=== PATIENT | female | born 1980 | race Caucasian/White ===

== ENCOUNTER 2022-01-31 17:10 | Outpatient (CLI) | payer OTHER, SELFPAY ==
[2022-01-31 21:45] LABS: Chloride* 100 mmol/L (96-114); Potassium* 4.2 mmol/L (3.6-5.1); Sodium* 137 mmol/L (135-149)
[2022-01-31 21:47] LABS: Creatinine* 0.8 mg/dL (0.5-1.5); Estimated Glomerular Filt Rate 94 ml/min
[2022-01-31 21:48] LABS: Blood Urea Nitrogen* 15 mg/dL (5-24); Calcium* 9.6 mg/dL (8.4-10.6); Carbon Dioxide* 29 mmol/L (20-32)
[2022-01-31 22:04] LABS: Glucose* 96 mg/dL (60-115)
== END 2022-01-31 17:11 | disposition home or self-care (01) ==
LOC: LKVREF 17:11
PROVIDERS: PCP Emergency Medicine; Visit Provider Emergency Medicine
DX: I10 Essential (primary) hypertension (principal)
CPT/HCPCS: 80048

== ENCOUNTER 2022-09-07 09:31 | Outpatient (CLI) | payer OTHER, SELFPAY ==
--- NOTE | 2022-09-07 09:45 | CRLHL7_ITS ---
For Patients: As a result of the Cures Act, medical imaging exams and procedure reports are released immediately into your electronic medical record. You may view this report before your referring provider. If you have questions, please contact your health care provider. DIGITAL DIAGNOSTIC BILATERAL MAMMOGRAM USING TOMOSYNTHESIS AND COMPUTER-AIDED DETECTION RIGHT BREAST ULTRASOUND CLINICAL HISTORY: RIGHT breast pain, discharge. COMPARISON: 08/03/2020. TECHNIQUE: Digital BILATERAL mammogram in four projections. Tomosynthesis and CAD utilized. Real-time ultrasound imaging of RIGHT breast with imaging documentation. BREAST COMPOSITION: There are areas of scattered fibroglandular density. FINDINGS: 3D CC/MLO BILATERAL mammogram images submitted. No suspicious masses or architectural distortion. No suspicious calcifications. No adenopathy. Targeted RIGHT breast ultrasound performed in the periareolar region. Normal subareolar ducts are noted. No intraductal nodule or suspicious mass. IMPRESSION: Normal BILATERAL 3D mammograms and normal targeted RIGHT breast ultrasound. No evidence of malignancy or papilloma. RECOMMENDATIONS: Annual BILATERAL screening mammography. Clinical follow-up. Results and recommendations discussed with the patient. BI-RADS Category 2: Benign A lay language report of this examination will be provided to the patient. Dictated by Jamal Bryant MD @ 09/07/2022 12:41:09 PM jj/Dictated by: Jamal Bryant MD @ 09/07/2022 12:41:00 PM (Electronically Signed)
--- NOTE | 2022-09-07 10:15 | CRLHL7_ITS ---
For Patients: As a result of the Cures Act, medical imaging exams and procedure reports are released immediately into your electronic medical record. You may view this report before your referring provider. If you have questions, please contact your health care provider. PLEASE SEE DIGITAL DIAGNOSTIC BILATERAL MAMMOGRAM PERFORMED SAME DAY CRL:rafael hall/Dictated by: Jamal Bryant MD @ 09/07/2022 12:41:00 PM (Electronically Signed)
== END 2022-09-07 09:32 | disposition home or self-care (01) ==
LOC: MAMMO 09:32
PROVIDERS: PCP Emergency Medicine; Visit Provider Emergency Medicine
DX: N64.52 Nipple discharge (principal); N64.4 Mastodynia
CPT/HCPCS: 76642; 77066; G0279

== ENCOUNTER 2022-12-12 11:50 | Outpatient (CLI) | payer OTHER, SELFPAY | END 2022-12-12 11:51 | disposition home or self-care (01) | PROVIDERS: PCP Emergency Medicine; Visit Provider Dermatology | DX: I10 Essential (primary) hypertension (principal); R73.01 Impaired fasting glucose; L40.50 Arthropathic psoriasis, unspecified; L40.9 Psoriasis, unspecified | CPT/HCPCS: 80053; 86480 ==

== ENCOUNTER 2023-12-28 12:54 | Outpatient (CLI) | payer OTHER, SELFPAY ==
--- OUTSIDE RECORDS SUMMARY | 2023-12-28 12:56 | XMS_ITS | Clinical Summary ---
Author Organization [employer] [facility] Address [place], [place] [address] Care Team Providers Care Power Grader Operator Name Role Phone Migue Anderson MD Primary Care Provider Allergies Active Allergy Reactions Criticality Noted Date Comments Penicillins Hives High 06/17/2015 Medications Medication Sig Dispensed Refills Start Date End Date Status vitamin-folic acid 1 mg ( VITAMIN) tablet/capsule Take 1 tablet by mouth once daily. 0 06/17/2015 Active ferrous sulfate, 65 mg elemental, (IRON, FERROUS SULFATE,) tablet Take 1 tablet by mouth once daily with a meal. 0 06/17/2015 Active calcium phosphate-vitamin D2 (CHILDREN'S CALCIUM GUMMIES) 100 mg calcium -100 unit chew Take 1 tablet by mouth once daily. 0 06/17/2015 Active omega-3 fatty acids-vitamin E (FISH OIL) 1,000 mg cap Take 1 capsule by mouth once daily. 0 06/17/2015 Active Family History Medical History Relation Name Comments Hypertension Father Hypertension Mother Relation Name Status Comments Father Alive Mother Alive Social History Tobacco Use Types Packs/Day Years Used Date Smoking Tobacco: Never Smokeless Tobacco: Never Alcohol Use Standard Drinks/Week Comments No 0 (1 standard drink = 0.6 oz pur e alcohol) Sex and Gender Information Value Date Recorded Sex Assigned at Not on file Gender Identity Not on file Sexual Orientation Not on file Obstetrics History Para Term AB IAB SAB Ectopic Multiple Livin g Live Births 6 0 0 0 3 0 3 0 0 2 Date Outcome GA Total Labor Labor/2nd/3rd Weight Sex Type Anes PTL Jasmin A1 A5 Name Clin SAB SAB SAB Last Filed Vital Signs Vital Sign Reading Time Taken Comments Blood Pressure 100/70 06/17/2015 1:19 PM BLOWER AND COMPRESSOR ASSEMBLER Pulse 78 06/17/2015 1:19 PM BLOWER AND COMPRESSOR ASSEMBLER Temperature - - Respiratory Rate - - Oxygen Saturation - - Inhaled Oxygen Concentration - - Weight 98.2 kg (216 lb 9.6 oz) 06/17/2015 1:19 P M BLOWER AND COMPRESSOR ASSEMBLER Height 172.7 cm (5' 8) 06/17/2015 1:19 PM BLOWER AND COMPRESSOR ASSEMBLER Body Mass Index 32.93 06/17/2015 1:19 PM BLOWER AND COMPRESSOR ASSEMBLER Plan of Treatment Health Maintenance Due Date Last Done Comments Tdap 09/30/1990 Depression screening for age 12+ 1991 HIV for age 15-65 09/30/1994 Hepatitis C screening for ag e 18-79 09/30/1997 Tetanus booster 1999 BMI (ht and wt on same day) for age 18+ 06/17/2016 06/17/2015 Pap test for age 21-65 06/05/2021 9, 06/05/2018 COVID-19 vaccine series (2022-24 season) 2023 Influenza for age 9-49 01/27/2024 Pneumococcal series for age 6-64 Aged Out No longer eligible b ased on patient's age to complete this topic Procedures Procedure Name Priority Date/Time Associated Diagnosis Comments SECURITY REPRESENTATIVE THIN PREP PAP SCREEN IMAGED Routine 06/05/2018 6:21 PM BLOWER AND COMPRESSOR ASSEMBLER from Last 3 Months or Most Recently Relevant to Health Maintenance Results * SECURITY REPRESENTATIVE THIN PREP PAP SCREEN IMAGED (06/05/2018 6:21 PM BLOWER AND COMPRESSOR ASSEMBLER) Case Report Gynecologic Cytology Report ? Case: [id number] ? Authorizing Provider: ??Thelma Egan ??Collected: ? 06/05/2018 1821 ? M, MD ? First Screen: ?Adelita Quintana ?Received: ?06/05/2018 1821 ? Specimen: ?SECURITY REPRESENTATIVE ThinPrep Vial Screening, Cervical/Vaginal ? 06/12/2018 6:51 PM [facility] INTERPRETATION/ RESULT NEGATIVE FOR INTRAEPITHELIAL LESION OR MALIGNANCY (NIL) (none) 06/12/2018 6:51 PM [facility] IMEN ADEQUACY Satisfactory for evaluation Endocervical component present 06/12/2018 6:51 PM [facility] HPV REQUEST HPV and PAP 06/12/2018 6:51 PM BLOWER AND COMPRESSOR ASSEMBLER [facility] Date of LMP 05/31/2018 06/12/2018 6:51 PM [facility] Last Pap Date 05/08/2015 06/12/2018 6:51 PM BLOWER AND COMPRESSOR ASSEMBLER [facility] Last Pap Result NIL 9 6:51 PM [facility] Automated Review Successful 06/12/2018 6:51 PM [facility] Comment:Specimen processed s uccessfully by automated sewer pipe layer device, ThinPrep Imaging System, [employer] ANCILLARY TESTING SECURITY REPRESENTATIVE HPV Ordered, Please see separate report 06/12/2018 6:51 PM [facility] Note The pap test is a screening technique, not a diagnostic procedure. ??It is used primarily to screen for squamous cancers and precursor lesions. ??Published studies have shown that it is subject to both false negative and false positive results. ??The pap test should not be used as the sole means to diagnose or exclude pre-malignant and malignant lesions. Cytology is screened and interpreted at [facility] - [address], [place] [address] and [facility] - [address]; [place] [address] and [facility] - [address]; [place] [address] and [facility] [address]; [place] [address] 06/12/2018 6:51 PM BLOWER AND COMPRESSOR ASSEMBLER [facility] Other (Cervical/Vagina l) 06/05/2018 6:21 PM BLOWER AND COMPRESSOR ASSEMBLER 06/05/2018 6:21 PM BLOWER AND COMPRESSOR ASSEMBLER Thelma Egan MD PATHOLOGY/ CYTOLOGY [facility] [address] [place] [address], from Last 3 Months or Most Recently Relevant to Health Maintenance Care Teams Power Grader Operator Relationship Specialty Start Date End Date Migue Anderson MD PCP - General Family Practice 06/17/15
--- OUTSIDE RECORDS SUMMARY | 2023-12-28 12:56 | XMS_ITS | Clinical Summary ---
Author Organization [facility] Address [address] [place] [address] Care Team Providers Care Custom Leather Products Maker Name Role Phone Migue Anderson M.D. Primary Care Provider Source Comments Patient records contain information from all sites at [facility]. For routine questions regarding patient records, call [phone] during business hours, M-F 8:00 AM - 5:00 PM Central Time. Record requests for emergency care only can be directed to [phone] at any time.[facility] Allergies Active Allergy Reactions Criticality Noted Date Comments Penicillins Hives (Reselect Reaction) 6 Medications Medication Sig Dispensed Refills Start Date End Date Status methocarbamoL (ROBAXIN) 500 mg tablet Take 1-2 tablets by mouth daily. 11/30/2019 Active clobetasoL (OLUX) 0.05 % topical foam Apply 1 application topically as needed. 11/04/2019 Active TURMERIC ORAL Take 1,000 mg by mouth daily. 500 mg/capsule Active ibuprofen (ADVIL,MOTRIN) 200 mg tablet Take 200 mg by mouth every 6 (six) hours as needed. Active aspirin/acetaminophen /caffeine (EXCEDRIN MIGRAINE ORAL) Take by mouth 2 (two) times a day as needed. Active amLODIPine (NORVASC) 5 mg tablet 03/16/2021 Active FA/mv,Ca,iron,min/lyc opene/lut (MULTIVITAL ORAL) Take by mouth. Active Taltz Autoinjector 80 mg/mL auto-injector injection Active Active Problems No known active problems Immunizations Name Administration Dates Next Due H1N1 All Forms 03/31/2009 HepA Adult 03/26/2015,12/04/2013 HepB Adult 12/23/2004 HepB, Unspecified 09/29/2003,07/28/2003 IPV 12/31/2013 Influenza, Injectable, Mdck, Preservative Free, Quadrivalent 05/19/2019 Influenza, Injectable, Quadrivalent 03/11/2017 Influenza, Seasonal, Injectable 02/28/2012 Influenza, Unspecified 05/11/2005 Td (Adult), adsorbed 12/23/2004 Tdap 09/10/2015,08/30/2012,02/28/2012 Family History Medical History Relation Name Comments Arthritis Father ray trexler Diabetes Father ray trexler Hyperlipidemia Father ray trexler Hypertension Father ray trexler Obesity Father ray trexler Sleep apnea Father ray trexler Migraines Maternal Grandmother Anxiety disorder Mother dunia trexler Arthritis Mother dunia trexler Asthma Mother dunia trexler Clotting disorder Mother dunia trexler Hyperlipidemia Mother dunia trexler Hypertension Mother dunia trexler Migraine variant with headache Mother dunia trexle r Obesity Mother dunia trexler Relation Name Status Comments Father ray trexler Maternal Grandmother Mother dunia trexler Social History Tobacco Use Types Packs/Day Years Used Date Smoking Tobacco: Never Passive Smoke Exposure: Never Smokeless Tobacco: Never Tobacco Cessation:Counseling Given: Not Answered Alcohol Use Standard Drinks/Week Comments Never 0 (1 standard drink = 0.6 oz pur e alcohol) Humiliation, Afraid, Rape, and Kick questionnair e Answer Date Recorded Within the last year, have y ou been afraid of your partner or ex-partner? No 12/31/2019 Within the last year, have y ou been humiliated or emotionally abused in other ways by your partner or ex-partner? No Within the last year, have y ou been kicked, hit, slapped, or otherwise physically hurt by your partner or ex-partner? No 12/31/2019 Within the last year, have y ou been raped or forced to have any kind of sexual activity by your partner or ex-partner? No 12/31/2019 Social Connection and Isolat ion Panel [NHANES] Answer Date Recorded In a typical week, how many times do you talk on the phone with family, friends, or neighbors? More than three times a week 12/31/2019 How often do you get togethe r with friends or relatives? Three times a week 12/31/2019 How often do you attend chur ch or bahai services? More than 4 times per year 12/31/2019 Do you belong to any clubs o r organizations such as catholic groups, unions, fraternal or athletic groups, or school groups? Yes 12/31/2019 How often do you attend meet ings of the clubs or organizations you belong to? More than 4 times per year 12/31/2019 Are you , , di vorced, , never , or living with a partner? 12/31/2019 AUDIT-C Answer Date Recorded Q1: How often do you have a drink containing alc ohol? Never 12/31/2019 Average Number of Drinks Not on file 020 Frequency of Binge Drinking Not on file 09/2019 Overall Financial Resource Strain (CARDIA) Answe r Date Recorded How hard is it for you to pa y for the very basics like food, housing, medical care, and heating? Not hard at all 12/31/2019 PHQ-2 Answer Date Recorded PHQ-2 Score 0 12/31/2019 [facility] - Occupational Stress Questionnaire Answer Date Recorded Do you feel stress - tense, restless, nervous, or anxious, or unable to sleep at night because your mind is troubled all the time - these days? Only a little 12/31/2019 Exercise Vital Sign Answer Date Recorde d On average, how many days pe r week do you engage in moderate to strenuous exercise (like a brisk walk)? 3 days 12/31/2019 On average, how many minutes do you engage in exercise at this level? 30 min 12/31/2019 Hunger Vital Sign Answer Date Recorded Within the past 12 months, y ou worried that your food would run out before you got the money to buy more. Never true 12/31/19 20 Within the past 12 months, t he food you bought just didn't last and you didn't have money to get more. Never true 12/31/2019 PRAPARE - Transportation Answer Date Re corded In the past 12 months, has l ack of transportation kept you from medical appointments or from getting medications? No 09/2019 In the past 12 months, has l ack of transportation kept you from meetings, work, or from getting things needed for daily living? No 12/31/2019 Nutrition Answer Date Recorded Nutrition: EVOO Fat Source Unknown 02/01 Nutrition: Servings of Fruits/Vegetables per Day Not on file 02/01/2023 Dental Answer Date Recorded Dental: Regular Dentist Unknown 02/02/20 Education Answer Date Recorded What is the highest level of school you have completed or the highest degree you have received? Master's degree (e.g., MA, MS, Brigid, MEd, THEATRICAL AGENT, FRIEDA) 12/31/2019 Sex and Gender Information Value Date Recorded Sex Assigned at Not on file Gender Identity Female 12/31/2019 9:29 AM CDT Sexual Orientation Straight 12/31/2019 9: 29 AM CDT Last Filed Vital Signs Vital Sign Reading Time Taken Comments Blood Pressure 139/97 04/08/2023 9:10 AM HEARING SCREEN COORDINATOR Pulse 77 04/08/2023 9:10 AM HEARING SCREEN COORDINATOR Temperature 37.1 ??C (98.8 ??F) 04/08/2023 9:10 AM CS T Respiratory Rate 16 04/25/2022 5:48 PM HEARING SCREEN COORDINATOR Oxygen Saturation 99% 04/08/2023 9:10 AM HEARING SCREEN COORDINATOR Inhaled Oxygen Concentration - - Weight 103 kg (226 lb) 02/01/2023 4:26 PM CDT Height 174.5 cm (5' 8.7) 01/01/2020 1:51 PM CDT Body Mass Index 33.67 01/01/2020 1:51 PM CDT Plan of Treatment Health Maintenance Due Date Last Done Comments HIV Screening 1979 Mammogram 1979 Pneumococcal vaccine (0-64 years) (1 of 2 - PCV) 09/30/1985 Zoster Vaccines (1 of 2) 09/30/1998 Cervical Cancer Screening 05/13/20222018 (Performed elsewhere) COVID-19 Vaccine (2022- season) 2023 04/16/2022, 05/17/2021, 07/25/2020, Additional history exists Depression Screening (Annual PHQ-2) 05/28/2023 Influenza Vaccine (#1) 2024 2, 05/19/2019, 03/11/2017, Additional history exists Lipid (Cholesterol) Screening 12/31/2024 01/01/2020 DTaP,Tdap,and Td Vaccines (4 - Td or Tdap) 09/09/2025 09/10/2015, 08/30/2012, 02/28/2012, Additional history exists Hepatitis B Vaccines Completed 12/23/2004, 09/29/2003, 07/28/2003 Hepatitis A Vaccines Completed 03/26/2015, 12/05/19 14 Hepatitis C Screening Completed 09/10/2015 HPV Vaccines Aged Out No longer eligi ble based on patient's age to complete this topic Procedures Procedure Name Priority Date/Time Associated Diagnosis Comments LIPID PANEL, S Routine 01/01/2020 7:13 AM CDT Allergy Food Personal History Arthritis Psoriatic (HCC) HCV AB SCRN W/REFLEX TO HCV PCR, S Routine 09/10/2015 3:00 PM CDT from Last 3 Months or Most Recently Relevant to Health Maintenance Results * (ABNORMAL) Lipid Panel (01/01/2020 7:13 AM CDT) Cholesterol, Total 234(H) mg/dL 2019 8:16 AM CDT DTL Comment: ----REFERENCE VALUE---- Desirable: < 200 Borderline high: 200 - 239 High: > or = 240 Triglycerides 122 mg/dL 01/01/2020 8:16 AM CDT DTL Comment: ----REFERENCE VALUE---- Normal: <150 Borderline high: 150-199 High: 200-499 Very high: > or =500 Cholesterol, HDL, S 56 >=50 mg/dL 01/01/2020 8:16 AM CDT DTL Calculated LDL 154(H) mg/dL 01/01/2020 8:16 AM CDT DTL Comment: ----REFERENCE VALUE---- Desirable: <100 Above Desirable: 100-129 Borderline high: 130-159 High: 160-189 Very high: > or =190 Cholesterol, Non-HDL, Calculated 178(H) mg/dL 01/01/2020 8:16 AM CDT DTL Comment: ----REFERENCE VALUE---- Desirable: <130 Above Desirable: 130-159 Borderline high: 160-189 High: 190-219 Very high: > or =220 Blood (Blood, Venous) 01/01/2020 7:13 AM CDT 01/01/2020 7:50 AM CDT Steffi Soto, M.P.H. LAB BLOOD ADD-ON Performing Organization Address City/[facility]/ZIP Co de Phone Number [facility] [address] [place] [address], [facility] DTL [facility] [address] [place] [address] * HCV Ab w/Reflex to HCV PCR, S (medicare) (09/10/2015 3:00 PM CDT) HXHCV Ab [facility] Negative Negative POWERCHART Comment: Ibgnoi-cb-[id number] ratio is <1.00. Test Performed by: [facility] [address] [place] [address] Paper Spooler: Marco A Angel II, M.D., Ph.D. Blood 09/10/2015 3:00 PM CDT Jose De Jesus Gomez M.D. LAB MICROBIOLOGY - BLOOD ORDERABLES Performing Organization Address City/[facility] Co de Phone Number POWERCHART from Last 3 Months or Most Recently Relevant to Health Maintenance Care Teams Custom Leather Products Maker Relationship Specialty Start Date End Date Migue Anderson M.D. PCP - General 11/24/16
--- OUTSIDE RECORDS SUMMARY | 2023-12-28 12:57 | XMS_ITS ---
Author Organization [facility] Address [address] [place] [address] Care Team Providers Care Fiscal Specialist Name Role Phone Unavailable Unavailable Unavailable Surgery Details Not on file Complications Check Surgery Details section. Procedure Estimated Blood Loss Check Surgery Details section. Procedure Findings Check Surgery Details section. Procedure Specimens Taken Check Surgery Details section.
--- OUTSIDE RECORDS SUMMARY | 2023-12-28 12:57 | XMS_ITS | Clinical Summary ---
Author Organization [place] Address [address] [facility] [place] [address] Care Team Providers Care Resource Forester Name Role Phone Nikolay Simmons Primary Care Provider Unavailabl e Allergies Active Allergy Reactions Criticality Noted Date Comments Penicillins Hives 05/23/2011 Medications Medication Sig Dispensed Refills Start Date End Date Status Magnesium 200 MG TABS Take 1 tablet by mouth daily. Active Multiple Vitamins-Minerals (MULTIVITAMIN & MINERAL PO) Take by mouth daily. Active Cyanocobalamin (VITAMIN B-12 PO) Take by mouth daily. Active ibuprofen (ADVIL,MOTRIN) 600 MG tabletIndications: Endometriosis Take 1 tablet by mouth every 6 hours as needed for other (For mild pain and temperature greater than 102F). 60 tablet 0 05/24/2011 Active oxycodone-acetamin ophen (PERCOCET) 5-325 MG per tabletIndications: Endometriosis Take 1-2 tablets by mouth every 4 hours as needed for pain. 30 tablet 0 05/24/2011 Active Additional Information Patient not taking.Reported on 06/03/2018 hydrOXYzine (VISTARIL) 25 MG capsuleIndications :Endometriosis Take 1 capsule by mouth every 6 hours as needed for itching. 30 capsule 0 05/24/2011 Active azithromycin (ZITHROMAX) 250 MG tabletIndications: Lower resp. tract infection Two tablets first day, then one tablet daily for four days. 6 tablet 08/24/2018 Active Family History Medical History Relation Comments Diabetes Father Hyperlipidemia Father Hypertension Father Prostate Cancer Maternal Grandfather Relation Status Comments Father Maternal Grandfather Social History Tobacco Use Types Packs/Day Years Used Date Smoking Tobacco: Never Smokeless Tobacco: Never Tobacco Cessation:Counseling Given: Yes Alcohol Use Standard Drinks/Week Comments Yes 0 (1 standard drink = 0.6 oz pur e alcohol) 1-2 glasses of wine/week Adolescent Education Answer Date Record ed Getting School Help Needed Not on file 03/14 Sex and Gender Information Value Date Recorded Sex Assigned at Not on file Gender Identity Not on file Sexual Orientation Not on file Last Filed Vital Signs Vital Sign Reading Time Taken Comments Blood Pressure 124/74 08/24/2018 9:01 PM CDT Pulse 88 08/24/2018 9:01 PM CDT Temperature 37.3 ??C (99.2 ??F) 08/24/2018 9:01 PM CD T Respiratory Rate 20 08/24/2018 9:01 PM CDT Oxygen Saturation 98% 08/24/2018 9:01 PM CDT Inhaled Oxygen Concentration - - Weight 108.9 kg (240 lb) 08/24/2018 9:01 PM CDT Height 172.7 cm (5' 8) 06/03/2018 2:13 PM HOME INSURANCE AGENT Body Mass Index 36.49 06/03/2018 2:13 PM HOME INSURANCE AGENT Plan of Treatment Not on file Care Teams Resource Forester Relationship Specialty Start Date End Date Nikolay Simmons [address] [place] [address] PCP - General 08/24/18
--- OUTSIDE RECORDS SUMMARY | 2023-12-28 12:57 | XMS_ITS | Referral Summary ---
Author Organization [place] Address [address] [facility] [place] [address] Care Team Providers Care Director Sales And Trade Marketing Name Role Phone Nikolay Simmons Primary Care [...] for four days. 6 tablet 08/24/2018 Active Social History Tobacco Use Types Packs/Day Years [...] 172.7 cm (5' 8) 06/03/2018 2:13 PM ACADEMIC TUTOR Body Mass Index 36.49 06/03/2018 2:13 PM ACADEMIC TUTOR Plan of Treatment Not on file Care Teams Director Sales And Trade Marketing Relationship Specialty Start Date End Date Nikolay Simmons [address] [place] [address] PCP - General 08/24/18
--- OUTSIDE RECORDS SUMMARY | 2023-12-28 12:57 | XMS_ITS | Referral Summary ---
Author Organization [facility] Address [address] [place] [address] Care Team Providers Care [employer] Utility Worker Name Role Phone Migue Anderson M.D. Primary Care Provider [phone] Source Comments Patient records contain information from all sites at [facility]. For routine questions regarding patient records, call [phone] during business hours, M-F 8:00 AM - 5:00 PM Central Time. Record requests for emergency care only can be directed to [phone] at any time.[facility] Allergies Active Allergy Reactions Criticality Noted Date [...] 05/11/2005 Td (Adult), adsorbed 12/23/2004 Tdap 09/10/2015,08/30/2012,02/28/2012 Social History Tobacco Use Types Packs/Day Years [...] often do you attend chur ch or adventism services? More than 4 times per year 12/31/2019 Do you belong to any clubs o r organizations such as hinduism groups, unions, fraternal or athletic groups, or [...] Answer Date Recorded PHQ-2 Score 0 12/31/2019 [facility] - Occupational Stress [...] Date Recorded Dental: Regular Dentist Unknown 02/02/20 23 Education Answer Date Recorded What is the highest level of school you have completed or the highest degree you have received? Master's degree (e.g., MA, MS, Brigid, MEd, ADVANCED PRACTICE NURSE, FRIEDA) 12/31/2019 Sex and Gender Information Value Date Recorded Sex Assigned at Not on file Gender Identity Female 12/31/2019 9:29 AM CDT Sexual Orientation Straight 12/31/2019 9: 29 AM CDT Last Filed Vital Signs Vital Sign Reading Time Taken Comments Blood Pressure 139/97 04/08/2023 9:10 AM [employer] Pulse 77 04/08/2023 9:10 AM [employer] Temperature 37.1 ??C (98.8 ??F) 04/08/2023 9:10 AM CS T Respiratory Rate 16 04/25/2022 5:48 PM [employer]ER Oxygen Saturation 99% 04/08/2023 9:10 AM [employer] C[employer] AS[employer]ER Inhaled Oxygen Concentration - - Weight 103 kg (226 lb) 02/01/2023 4:26 PM CDT Height 174.5 cm (5' 8.7) 01/01/2020 1:51 PM CDT Body Mass Index 33.67 01/01/2020 1:51 PM CDT Plan of Treatment Not on file Procedures Procedure Name Priority Date/Time Associated Diagnosis Comments LIPID PANEL, S Routine 01/01/2020 7:13 AM CDT Allergy Food Personal History Arthritis Psoriatic (HCC) HCV AB SCRN W/REFLEX TO HCV PCR, S Routine 09/10/2015 3:00 PM CDT from Last 3 Months or Most Recently Relevant to Health Maintenance Results * (ABNORMAL) Lipid Panel (01/01/2020 7:13 AM CDT) Pathologist [facility] Cholesterol, Total 234(H) mg/dL 2019 8:16 AM [...] Calculated 178(H) mg/dL 01/01/2020 8:16 AM CDT DT Comment: ----REFERENCE VALUE---- Desirable: <130 Above Desirable: 130-159 Borderline high: 160-189 High: 190-219 Very high: > or =220 Blood (Blood, Venous) 01/01/2020 7:13 AM CDT 01/01/2020 7:50 AM CDT Steffi Emmanuel., M.P.H. LAB BLOOD ADD-ON Performing Organization Address City/[facility] [place] [address], [facility] [place] [address] * HCV Ab w/Reflex to HCV PCR, S (medicare) (09/10/2015 3:00 PM CDT) HXHCV Ab [facility] Negative Negative POWERCHART Comment: Ahlklr-ag-pokfvf ratio is <1.00. Test Performed by: [place] [address] Cad Intern: Marco A Angel II, M.D., Ph.D. Blood 09/10/2015 3:00 PM CDT Jose De Jesus Gomez M.D. 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 PCP - General 11/24/16
--- NOTE | 2023-12-28 13:00 | CRLHL7_ITS ---
For Patients: As a result of the Century Cures Act, medical imaging exams and procedure reports are released immediately into your electronic medical record. You may view this report before your referring provider. If you have questions, please contact your health care provider. BILATERAL SCREENING MAMMOGRAM WITH COMPUTER-AIDED DETECTION AND TOMOSYNTHESIS TECHNIQUE: CC and MLO views were obtained. These mammographic images have been obtained using full-field digital technique. These mammographic images were interpreted with the benefit of computer-aided detection. Breast Tomosynthesis was used in this interpretation. COMPARISON FILM: 09/07/22, 09/08/21, 08/03/20. FINDINGS: The breasts are heterogeneously dense, which may obscure small masses IMPRESSION: There is no radiographic evidence for malignancy. ASSESSMENT: BI-RADS Category 1: Negative RECOMMENDATION: Routine screening mammogram in 1 year. A lay language report of this examination will be provided to the patient. Jamal Bryant M.D. Diagnostic Radiologist [email or web address] JULIANN/derek / be/Dictated by: Jamal Bryant MD @ 12/31/2023 8:47:00 AM (Electronically Signed)
== END 2023-12-28 12:55 | disposition home or self-care (01) ==
LOC: MAMMO 12:55
PROVIDERS: PCP Family Medicine; Visit Provider Family Medicine
DX: Z12.31 Encounter for screening mammogram for malignant neoplasm of breast (principal); R92.2 Inconclusive mammogram
CPT/HCPCS: 77063; 77067

== ENCOUNTER 2025-01-16 08:27 | Outpatient (CLI) | payer OTHER, SELFPAY ==
--- NOTE | 2025-01-16 08:45 | CRLHL7_ITS ---
For Patients: As a result of the Century Cures Act, medical imaging exams and procedure reports are released immediately into your electronic medical record. You may view this report before your referring provider. If you have questions, please contact your health care provider. INDICATION: BILATERAL SCREENING MAMMOGRAM, ASYMPTOMATIC 44 Y/O/ FEMALE COMPARISON: 12/28/2023, 09/07/2022, 09/08/2021 TECHNIQUE: Digital mammogram in CC and MLO projections including computer-aided detection (CAD) and tomosynthesis. BREAST COMPOSITION: There are scattered areas of fibroglandular density. FINDINGS: No suspicious findings. ASSESSMENT: BI-RADS 1 Negative RECOMMENDATION: Annual screening mammogram. A lay language report of this examination will be provided to the patient. Dictated by: Jamal Braynt MD @ 01/19/2025 12:49:50 (Electronically Signed)
== END 2025-01-16 08:28 | disposition home or self-care (01) ==
LOC: MAMMO 08:28
PROVIDERS: PCP Family Medicine; Visit Provider Family Medicine
DX: Z12.31 Encounter for screening mammogram for malignant neoplasm of breast (principal)
CPT/HCPCS: 77063; 77067